=== PATIENT | female | born 1970 | race African-American/Black ===

== ENCOUNTER 2016-05-27 12:34 | Emergency (ER) ==
[2016-05-27] MEDS ORDERED: ASPIRIN PO STA (12:48)
[2016-05-27 12:57] VITALS: BP 136/80
--- NOTE | 2016-05-27 13:02 | ED EKG INTERP ---
EKG Interpretation - EKG Time of EKG reading by physician:: 12:49 EKG Read and Signed by:: Shailesh Fisher EKG Interpretation (*Must complete 3 of following elements*): Abnormal Rate: 59 Rhythm: Sinus bradycardia [place]man: normal QRS: normal [place] Interval: normal ST Wave: normal
[2016-05-27 13:25] LABS: BASO% 0.4 % (0.0-0.8); EOS# 0.44 X1000 (0.0-0.7); EOS% 6.4 % (0.0-10.0); HEMATOCRIT 41.6 % (37.0-47.0); HEMOGLOBIN 13.2 g/dL (12.0-16.0); MANUAL DIFF NEEDED? NO; MCH 23.3 PG (27-31); MCHC 31.7 g/dL (33-37); MCV 73.5 FL (81-99); MONO# 0.49 X1000 (0.11-0.59); MONO% 7.2 % (1.7-9.3); PLT 259 X1000 (130-400); RBC 5.66 XMIL (4.2-5.4)
--- NOTE | 2016-05-27 13:40 | Diag Imaging Result Document ---
PROCEDURE NAME: CHEST-2 VIEWS - 05/27/2016 CHEST X-RAY 2 VIEWS: COMPARISON: 05/24/2016. FINDINGS: The lungs are normally expanded and clear. Heart size and mediastinal contours are normal. No pneumothorax or pleural effusion. IMPRESSION: Negative exam.
[2016-05-27 14:05] LABS: AGAP 14; ALBUMIN 4.4 g/dL (3.5-5.0); ALKALINE PHOSPHATASE 130 U/L (32-104); BUN 11 mg/dL (8-22); CALCIUM 9.9 mg/dL (8.8-10.2); CHLORIDE 100 mmol/L (98-107); CK PROFILE 146 U/L (24-173); COSMO 276; GOT 19 U/L (10-30); GPT 22 U/L (10-36); MAGNESIUM 1.9 mg/dL (1.5-2.7); POTASSIUM 4.4 mmol/L (3.5-5.1); SODIUM 139 mmol/L (136-145); TCO2 25 mmol/L (25-35); TOTAL PROTEIN 7.6 g/dL (6.3-8.3)
--- NOTE | 2016-05-27 15:36 | EKG Report ---
Test Performed on : 05/27/2016 12:49:29 PM Test Reason : Chest Pain Blood Pressure : / mmHG Vent. Rate : 059 BPM Atrial Rate : 059 BPM P-R Int : 202 ms QRS Dur : 090 ms QT Int : 404 ms P-R-T Axes : 041 004 022 degrees QTc Int : 399 ms Sinus bradycardia. Cannot rule out Anterior infarct , age undetermined Abnormal ECG When compared with ECG of 24-MAY-2016 23:26, Minimal criteria for Anterior infarct are now present Unconfirmed Result
== END 2016-05-27 16:00 | disposition left against medical advice (07) ==
LOC: ED 12:34
DX: R07.9 Chest pain, unspecified (principal); R25.2 Cramp and spasm
CPT/HCPCS: 71020; 80053; 82550; 83735; 83880; 84484; 85025; 85379; 93005

== ENCOUNTER 2016-06-02 17:18 | Emergency (ER) ==
[2016-06-02] MEDS ORDERED: PHENERGAN PO ONE (18:22)
[2016-06-02] MEDS ORDERED: FIORICET PO ONE (18:22)
--- NOTE | 2016-06-02 18:28 | PROVIDER DOCUMENTATION ---
HPI-General Adult - General Chief Complaint: Headache Stated Complaint: CHEST PAIN/HEADACHE Time Seen by Provider: 06/02/16 18:09 Source: patient Allergies/Adverse Reactions: Patient Allergies Allergy/AdvReac Type Severity Reaction Status Date / Time Penicillins Allergy ITCHING Verified 05/24/16 21:07 - History of Present Illness -Gen Adult Nature of Presenting Problems: 45 y/o BF c/o MOLINA, lump in throat, CP x 1 week. Pt states she was seen one week ago for the same sxs, but they never went away. Reports that she was given Rx for metoprolol for HTN on 26 May, 50 mg once daily, and states sxs started after she started the medication. Reports CP is in central chest and radiates to the back; MOLINA is global. States both are constant, but smoking makes them worse. MOLINA is 20/10 and CP is 10/10. Pt declines any labwork; stating "they already done that!" Reports she just wants something for the pain; agreed to EKG and Xrays. Review of Systems - Adult - REVIEW OF SYSTEMS - ADULT Constitutional: reports: no symptoms reported. denies: chills, fever Eyes: reports: no symptoms reported. denies: blurred vision, double vision Ears, Nose, Mouth & Throat: reports: no symptoms reported. denies: ear pain, nose pain Cardiovascular: reports: no symptoms reported. denies: chest pain, palpitations Respiratory: reports: no symptoms reported. denies: cough, shortness of breath Gastrointestinal: reports: no symptoms reported. denies: abdominal pain, nausea , vomiting Genitourinary: reports: no symptoms reported. denies: dysuria, frequency Musculoskeletal: reports: see HPI, frequent leg cramps. denies: joint pain, joint swelling Integumentary: reports: no symptoms reported. denies: nail changes, rash Neurological: reports: see HPI, headache/migraines. denies: dizziness/vertigo, numbness, paresthesia, seizure, syncope, tremors Psychiatric: reports: no symptoms reported Endocrine: reports: no symptoms reported. denies: cold intolerance, heat intolerance Hematologic/Lymphatic: reports: no symptoms reported. denies: easy bruising, prolonged bleeding Allergic/Immunologic: reports: no symptoms reported All Other Systems: Reviewed and Negative Past History - Adult - PAST MEDICAL HISTORY-ADULT Review of Records: reports: Nursing Assessment Review, Medications Reviewed Major Childhood Illnesses: reports: denies history Gastrointestinal: reports: GERD Neurological: reports: headaches/migraines Psychiatric: reports: schizophrenia - PRIOR SURGERIES/PROCEDURES Surgical/Procedure History: reports: BTL, - PRIOR HOSPITALIZATIONS Prior Hospitalizations: reports: none - IMMUNIZATION STATUS Childhood Immunizations: See Nurse Assessment Flu Vaccine: See Nurse Assessment - SOCIAL HISTORY Smoking: cigarettes, less than 1 pack/day Provider spent 3-5 mins advising pt. on dangers of tobacco.: Discussed manners to quit use, and f/u contacts for add'l counseling. Physical Exam-General - PHYSICAL EXAM-ADULT Initial Vital Signs Reviewed: Yes - CONSTITUTIONAL General Appearance: alert, mild distress - EYES Eyes: PERRL/EOMI, pink conjunctivae. negative: EOM palsy, meningismus, photophobia - HEAD, EARS, NOSE, MOUTH & THROAT HENMT: normocephalic/atraumatic, moist mucous membranes, pharynx normal. negative: hearing deficit - NECK Neck: supple, normal inspection. negative: Brudzinski's sign, lymphadenopathy, tender lateral, tender midline, thyromegaly - RESPIRATORY Respiratory: lungs clear, normal breath sounds. negative: chest non-tender ( TTP in chest and back), crackles, rales, rhonchi, stridor, wheezing - CARDIOVASCULAR Cardiovascular: regular rate, rhythm. negative: bradycardia, tachycardia - GASTROINTESTINAL (ABDOMEN) Abdominal Exam: normal bowel sounds, non tender, soft. negative: distended, guarding, rigid, rebound - MUSCULOSKELETAL Back Exam: no CVA tenderness Extremity: normal gait, normal inspection. negative: abnormal NV exam - SKIN Integumentary: normal color, normal turgor, warm/dry - NEUROLOGIC Neurologic: mileage clerk II-XII nml as tested. negative: aphasia, EOM palsy, facial droop, focal weakness, motor weakness, sensory deficit - PSYCHIATRIC Psych/Mental Status: normal mood/affect, normal thought content, normal thought process, oriented x 3 Progress - PLAN OF CARE/RESULTS Progress/Plan/Lab Results: Orders Category Date Time Status CHEST-2 VIEWS [RAD] Stat Exams 06/02/16 18:22 Completed NECK AP AND/OR LAT SOFT TISSUE [RAD] Stat Exams 06/02/16 18:22 Completed Butalbital/APAP/Caffeine [Fioricet] Med 06/02/16 18:22 Discontinued 1 each PO NOW ONE Promethazine [Phenergan] Med 06/02/16 18:22 Discontinued 25 mg PO NOW ONE EKG [EKG] Stat Ther 06/02/16 18:22 Ordered Vital Signs Temp Pulse Resp BP Pulse Ox 06/02/16 19:32 99.1 F 70 20 147/100 97 06/02/16 17:24 97 F L 76 18 145/78 100 Penicillins Allergy (Verified 05/24/16 21:07) ITCHING Fluoxetine [Prozac] 20 mg PO QAM #0 capsule 02/18/15 Quetiapine [Seroquel] 100 mg PO QHS #0 tablet 02/18/15 Metoprolol Succinate E.r. [Toprol Xl] 50 mg PO DAILY #30 tablet 05/25/16 Butalbital/Acetaminophen [Bupap 50 mg-300 mg Tablet] 1 each PO Q6H PRN PRN #10 tablet 06/02/16 Hydrochlorothiazide 12.5 mg PO QAM #30 tablet 06/02/16 Discussed results and f/u with pt. Discussed pt with Dr. Lloyd and he agreed with d/c plan. - XRAY 1 XRAY Study: Chest XRAY Interpretation: NAD, per Dr. Lloyd 2 XRAY Study: other (neck, ap/lat) XRAY Interpretation: arthritic changes in Cspine, NAD- per Dr. Lloyd Departure - Departure Time of Disposition Order: 18:50 DIAGNOSIS: Chest wall pain Hypertension Qualifiers: Hypertension type: essential hypertension Qualified Code(s): I10 - Essential ( primary) hypertension Headache Qualifiers: Headache type: unspecified Headache chronicity pattern: unspecified pattern Intractability: not intractable Qualified Code(s): R51 - Headache Disposition: HOME 01 Certified Medical Emergency: Emergent Condition: Stable Additional Instructions: Take medications as directed. Follow up with PCP in 10 days for recheck. ED Follow Up Instructions: You have been treated by a care provider in the Emergency Department. These instructions are being provided to you so you can have an understanding of how to care for yourself upon discharge. Upon discharge from the Emergency Department, you are responsible for making arrangements for follow-up care by a physician of your choice. Take all prescribed medications as directed. Return to the Emergency Department immediately for any new or worsening symptoms. You may call the Physician Referral phone number at [phone] to obtain a list of Physicians who are taking new patients. Prescriptions: Butalbital/Acetaminophen [Bupap 50 mg-300 mg Tablet] 1 each PO Q6H PRN PRN #10 tablet PRN Reason: Pain Hydrochlorothiazide 12.5 mg PO QAM #30 tablet Referrals: None,PCP [Primary Care Provider] - Forms: Return to School/Parent Work Instructions: Migraine Headache, [id number], Hydrochlorothiazide, HCTZ capsules or tablets, Acetaminophen; Butalbital tablets or capsules Attestation - Physician/ Mid-level Attestation Patient care was provided by Mid-level provider (DIRECTOR OF SECURITIES AND REAL ESTATE/PA):: Yes Mid-level provider:: Marion Bruno Mid-level documentation review:: The Mid-level provider documentation, treatment plan and medical decision making was reviewed by the physician who agrees with all treatment and medical decision making by the MLP.
[2016-06-02 19:33] VITALS: BP 147/100
--- NOTE | 2016-06-03 10:08 | Diag Imaging Result Document ---
PROCEDURE NAME: CHEST-2 VIEWS - 06/02/2016 PA AND LATERAL RADIOGRAPH OF THE CHEST: COMPARISON: 05/27/2016. FINDINGS: The lungs are grossly clear. There is no discrete pleural fluid collection or evidence of pneumothorax. The cardiomediastinal silhouette and upper airway are grossly unremarkable. IMPRESSION: No evidence of acute chest pathology.
--- NOTE | 2016-06-03 10:18 | Diag Imaging Result Document ---
PROCEDURE NAME: NECK AP AND/OR LAT SOFT TISSUE - 06/02/2016 PLAIN RADIOGRAPH OF THE NECK SOFT TISSUES, 2 VIEWS: COMPARISON: Cervical spine radiograph dated 12/27/2014. FINDINGS: The upper airway appears to be grossly patent. There are prominent ventral marginal osteophytes at C5-6 and C6-7 that are stable. There appears to be some degree of mass effect at the posterior aspect of the esophagus by the osteophyte at C6-7. Surrounding soft tissues are otherwise grossly unremarkable. IMPRESSION: Prominent but stable ventral marginal osteophytes at C5-6 and C6-7 as described. Please see above discussion.
== END 2016-06-02 19:32 | disposition home or self-care (01) ==
LOC: P.ED 17:18
DX: R07.89 Other chest pain (principal); I10 Essential (primary) hypertension; R51 Headache; M54.9 Dorsalgia, unspecified; R22.0 Localized swelling, mass and lump, head; R25.2 Cramp and spasm; F17.210 Nicotine dependence, cigarettes, uncomplicated; Z71.6 Tobacco abuse counseling
CPT/HCPCS: 70360; 71020; 93005; 99283